=== PATIENT | female | born 1960 | race Caucasian/White ===

== ENCOUNTER 2016-07-29 11:37 | Outpatient (CLI) | payer BC ==
[2016-01-13 21:03] VITALS: BP 107/74
[2016-07-29 12:02] LABS: BASOPHILS % 0.2 (0.0-1.5); EOSINOPHILS % 2.7 % (0.0-6.8); LYMPHOCYTES # 0.5 # k/uL (0.6-4.0); MEAN CORPUSCULAR HEMOGLOBIN 30.7 pg (28.0-34.0); MONOCYTES # 0.4 # k/uL (0.0-0.9); MONOCYTES % 10.3 % (0.0-11.0); NEUTROPHILS # 2.7 # k/uL (1.4-7.7)
[2016-07-29 12:29] LABS: BILIRUBIN,DIRECT 0.1 mg/dL (0.0-0.4); eGFR (African) > 60; eGFR (Non-African) > 60
== END 2016-07-29 11:40 ==
LOC: LAB 11:37
PROVIDERS: ATTEND Internal Medicine Hematology & Oncology
DX: C34.90 Malignant neoplasm of unspecified part of unspecified bronchus or lung (principal)
CPT/HCPCS: 36415; 80053; 82248; 85025

== ENCOUNTER 2016-08-05 11:41 | Outpatient (CLI) | payer BC ==
[2016-01-13 21:03] VITALS: BP 107/74
[2016-08-05 11:57] LABS: BASOPHILS % 0.2 (0.0-1.5); EOSINOPHILS % 3.6 % (0.0-6.8); LYMPHOCYTES # 0.5 # k/uL (0.6-4.0); MEAN CORPUSCULAR HEMOGLOBIN 30.5 pg (28.0-34.0); MONOCYTES # 0.3 # k/uL (0.0-0.9); MONOCYTES % 8.7 % (0.0-11.0); NEUTROPHILS # 2.9 # k/uL (1.4-7.7)
[2016-08-05 12:44] LABS: BILIRUBIN,DIRECT 0.1 mg/dL (0.0-0.4); eGFR (African) > 60; eGFR (Non-African) > 60
== END 2016-08-05 11:42 ==
LOC: LAB 11:41
PROVIDERS: ATTEND Internal Medicine Hematology & Oncology
DX: C34.90 Malignant neoplasm of unspecified part of unspecified bronchus or lung (principal)
CPT/HCPCS: 36415; 80053; 82248; 85025

== ENCOUNTER 2016-08-26 12:50 | Outpatient (CLI) | payer BC ==
[2016-01-13 21:03] VITALS: BP 107/74
[2016-08-26 13:06] LABS: BASOPHILS % 0.1 (0.0-1.5); EOSINOPHILS % 6.9 % (0.0-6.8); LYMPHOCYTES # 0.5 # k/uL (0.6-4.0); MEAN CORPUSCULAR HEMOGLOBIN 31.8 pg (28.0-34.0); MONOCYTES # 0.3 # k/uL (0.0-0.9); MONOCYTES % 8.6 % (0.0-11.0); NEUTROPHILS # 2.1 # k/uL (1.4-7.7)
[2016-08-26 13:38] LABS: BILIRUBIN,DIRECT 0.1 mg/dL (0.0-0.4); eGFR (African) > 60; eGFR (Non-African) > 60
== END 2016-08-26 12:52 ==
LOC: LAB 12:50
PROVIDERS: ATTEND Internal Medicine Hematology & Oncology
DX: C34.90 Malignant neoplasm of unspecified part of unspecified bronchus or lung (principal)
CPT/HCPCS: 36415; 80053; 82248; 85025

== ENCOUNTER 2016-09-02 11:34 | Outpatient (CLI) | payer BC ==
[2016-01-13 21:03] VITALS: BP 107/74
[2016-09-02 12:00] LABS: BASOPHILS % 0.3 (0.0-1.5); EOSINOPHILS % 5.3 % (0.0-6.8); LYMPHOCYTES # 0.5 # k/uL (0.6-4.0); MEAN CORPUSCULAR HEMOGLOBIN 31.7 pg (28.0-34.0); MONOCYTES # 0.4 # k/uL (0.0-0.9); MONOCYTES % 12.1 % (0.0-11.0); NEUTROPHILS # 2.1 # k/uL (1.4-7.7)
== END 2016-09-02 11:35 ==
LOC: LAB 11:34
PROVIDERS: ATTEND Internal Medicine Hematology & Oncology
DX: L50.9 Urticaria, unspecified (principal)
CPT/HCPCS: 36415; 80053; 82248; 85025

== ENCOUNTER 2016-09-23 09:12 | Outpatient (CLI) | payer BC ==
[2016-01-13 21:03] VITALS: BP 107/74
[2016-09-23 09:34] LABS: BASOPHILS % 0.6 (0.0-1.5); LYMPHOCYTES # 0.4 # k/uL (0.6-4.0); MEAN CORPUSCULAR HEMOGLOBIN 30.8 pg (28.0-34.0); MONOCYTES # 0.3 # k/uL (0.0-0.9); MONOCYTES % 10.5 % (0.0-11.0)
[2016-09-23 10:01] LABS: BILIRUBIN,DIRECT 0.1 mg/dL (0.0-0.4); eGFR (African) > 60; eGFR (Non-African) > 60
== END 2016-09-23 09:30 ==
LOC: LAB 09:12
PROVIDERS: ATTEND Emergency Medicine
DX: C34.90 Malignant neoplasm of unspecified part of unspecified bronchus or lung (principal)
CPT/HCPCS: 36415; 80053; 82248; 85025

== ENCOUNTER 2016-09-30 11:31 | Outpatient (CLI) | payer BC ==
[2016-01-13 21:03] VITALS: BP 107/74
[2016-09-30 11:55] LABS: APPEARANCE,URINE Clear (CLEAR); BASOPHILS % 0.3 (0.0-1.5); COLOR,URINE Yellow (YELLOW); EOSINOPHILS % 2.6 % (0.0-6.8); LYMPHOCYTES # 0.4 # k/uL (0.6-4.0); MEAN CORPUSCULAR HEMOGLOBIN 31.1 pg (28.0-34.0); MONOCYTES # 0.3 # k/uL (0.0-0.9); MONOCYTES % 8.5 % (0.0-11.0); NEUTROPHILS # 2.3 # k/uL (1.4-7.7); OCCULT BLOOD,URINE Negative (NEGATIVE); UROBILINOGEN URINE 0.2 Eu (0.2-1.0)
[2016-09-30 12:52] LABS: BILIRUBIN,DIRECT 0.1 mg/dL (0.0-0.4); eGFR (African) > 60; eGFR (Non-African) > 60
== END 2016-09-30 11:32 ==
LOC: LAB 11:31
PROVIDERS: ATTEND Internal Medicine Hematology & Oncology
DX: C34.90 Malignant neoplasm of unspecified part of unspecified bronchus or lung (principal)
CPT/HCPCS: 36415; 80053; 81002; 82248; 85025; 87086

== ENCOUNTER 2016-10-21 08:18 | Outpatient (CLI) | payer BC ==
[2016-01-13 21:03] VITALS: BP 107/74
[2016-10-21 08:35] LABS: BASOPHILS % 0.3 (0.0-1.5); EOSINOPHILS % 3.2 % (0.0-6.8); MEAN CORPUSCULAR HEMOGLOBIN 31.5 pg (28.0-34.0); MEAN CORPUSCULAR VOLUME 95.7 fl (80.0-100.0); MONOCYTES % 7.5 % (0.0-11.0); NEUTROPHILS # 2.9 # k/uL (1.4-7.7)
[2016-10-21 09:29] LABS: BILIRUBIN,DIRECT 0.1 mg/dL (0.0-0.4); eGFR (African) > 60; eGFR (Non-African) > 60
== END 2016-10-21 08:19 ==
LOC: LAB 08:18
PROVIDERS: ATTEND Internal Medicine Hematology & Oncology
DX: L50.9 Urticaria, unspecified (principal)
CPT/HCPCS: 36415; 80053; 82248; 85025

== ENCOUNTER 2016-10-28 11:49 | Outpatient (CLI) | payer BC ==
[2016-01-13 21:03] VITALS: BP 107/74
[2016-10-28 12:03] LABS: BASOPHILS % 0.6 (0.0-1.5); EOSINOPHILS % 3.2 % (0.0-6.8); MEAN CORPUSCULAR VOLUME 94.7 fl (80.0-100.0); MONOCYTES % 9.9 % (0.0-11.0); NEUTROPHILS # 2.2 # k/uL (1.4-7.7)
[2016-10-28 12:41] LABS: eGFR (African) > 60; eGFR (Non-African) > 60
[2016-10-28 13:44] LABS: BILIRUBIN,DIRECT < 0.10 mg/dL (0.0-0.4)
== END 2016-10-28 11:50 ==
LOC: LAB 11:49
PROVIDERS: ATTEND Internal Medicine Hematology & Oncology
DX: L50.9 Urticaria, unspecified (principal)
CPT/HCPCS: 36415; 80053; 82248; 85025

== ENCOUNTER 2016-11-18 11:42 | Outpatient (CLI) | payer BC ==
[2016-01-13 21:03] VITALS: BP 107/74
[2016-11-18 12:10] LABS: BASOPHILS % 0.3 (0.0-1.5); EOSINOPHILS % 3.9 % (0.0-6.8); MEAN CORPUSCULAR HEMOGLOBIN 31.8 pg (28.0-34.0); MEAN CORPUSCULAR VOLUME 96.4 fl (80.0-100.0); MONOCYTES % 8.3 % (0.0-11.0); NEUTROPHILS # 2.5 # k/uL (1.4-7.7)
[2016-11-18 12:36] LABS: eGFR (African) > 60; eGFR (Non-African) > 60
== END 2016-11-18 11:43 ==
LOC: LAB 11:42
PROVIDERS: ATTEND Internal Medicine Hematology & Oncology
DX: C34.90 Malignant neoplasm of unspecified part of unspecified bronchus or lung (principal)
CPT/HCPCS: 36415; 80053; 82248; 85025

== ENCOUNTER 2016-11-26 11:46 | Outpatient (CLI) | payer BC ==
[2016-01-13 21:03] VITALS: BP 107/74
[2016-11-26 12:03] LABS: BASOPHILS % 0.3 (0.0-1.5); EOSINOPHILS % 2.4 % (0.0-6.8); MEAN CORPUSCULAR VOLUME 93.4 fl (80.0-100.0); MONOCYTES % 9.2 % (0.0-11.0); NEUTROPHILS # 2.4 # k/uL (1.4-7.7)
[2016-11-26 12:36] LABS: eGFR (African) > 60; eGFR (Non-African) > 60
== END 2016-11-26 11:47 ==
LOC: LAB 11:46
PROVIDERS: ATTEND Internal Medicine Hematology & Oncology
DX: C34.90 Malignant neoplasm of unspecified part of unspecified bronchus or lung (principal)
CPT/HCPCS: 36415; 80053; 82248; 85025

== ENCOUNTER 2016-12-16 07:03 | Outpatient (CLI) | payer BC ==
[2016-01-13 21:03] VITALS: BP 107/74
[2016-12-16 07:19] LABS: BASOPHILS % 0.4 (0.0-1.5); EOSINOPHILS % 3.5 % (0.0-6.8); MEAN CORPUSCULAR VOLUME 95.9 fl (80.0-100.0); MONOCYTES % 9.6 % (0.0-11.0); NEUTROPHILS # 1.5 # k/uL (1.4-7.7)
[2016-12-16 07:44] LABS: eGFR (African) > 60; eGFR (Non-African) > 60
== END 2016-12-16 07:04 ==
LOC: LAB 07:03
PROVIDERS: ATTEND Internal Medicine Hematology & Oncology
DX: C34.90 Malignant neoplasm of unspecified part of unspecified bronchus or lung (principal)
CPT/HCPCS: 80053; 82248; 85025

== ENCOUNTER 2016-12-23 11:57 | Outpatient (CLI) | payer BC ==
[2016-01-13 21:03] VITALS: BP 107/74
[2016-12-23 12:16] LABS: BASOPHILS % 0.4 (0.0-1.5); EOSINOPHILS % 2.3 % (0.0-6.8); MEAN CORPUSCULAR HEMOGLOBIN 31.1 pg (28.0-34.0); MEAN CORPUSCULAR VOLUME 95.1 fl (80.0-100.0); MONOCYTES % 10.2 % (0.0-11.0); NEUTROPHILS # 2.8 # k/uL (1.4-7.7)
[2016-12-23 12:46] LABS: eGFR (African) > 60; eGFR (Non-African) > 60
== END 2016-12-23 12:00 ==
LOC: LAB 11:57
PROVIDERS: ATTEND Internal Medicine Hematology & Oncology
DX: C34.90 Malignant neoplasm of unspecified part of unspecified bronchus or lung (principal); Z92.21 Personal history of antineoplastic chemotherapy
CPT/HCPCS: 36415; 80053; 82248; 85025

== ENCOUNTER 2016-12-30 14:13 | Outpatient (CLI) | payer BC ==
[2016-01-13 21:03] VITALS: BP 107/74
[2016-12-30 14:30] LABS: BASOPHILS % 0.7 (0.0-1.5); EOSINOPHILS % 2.3 % (0.0-6.8); MEAN CORPUSCULAR HEMOGLOBIN 31.8 pg (28.0-34.0); MEAN CORPUSCULAR VOLUME 94.6 fl (80.0-100.0); NEUTROPHILS # 2.8 # k/uL (1.4-7.7)
[2016-12-30 14:58] LABS: eGFR (African) > 60; eGFR (Non-African) > 60
== END 2016-12-30 14:14 ==
LOC: LAB 14:13
PROVIDERS: ATTEND Internal Medicine Hematology & Oncology
DX: C34.90 Malignant neoplasm of unspecified part of unspecified bronchus or lung (principal)
CPT/HCPCS: 36415; 80053; 82248; 85025

== ENCOUNTER 2017-01-21 10:56 | Outpatient (CLI) | payer BC ==
[2016-01-13 21:03] VITALS: BP 107/74
[2017-01-21 11:23] LABS: BASOPHILS % 0.5 (0.0-1.5); EOSINOPHILS % 2.4 % (0.0-6.8); MEAN CORPUSCULAR HEMOGLOBIN 32.3 pg (28.0-34.0); MEAN CORPUSCULAR VOLUME 95.2 fl (80.0-100.0); MONOCYTES % 9.9 % (0.0-11.0); NEUTROPHILS # 2.6 # k/uL (1.4-7.7)
[2017-01-21 21:51] LABS: TOTAL PROTEIN 6.9 g/dL (6.0-8.5)
== END 2017-01-21 10:57 ==
LOC: LAB 10:56
PROVIDERS: ATTEND Nurse Practitioner
DX: I62.9 Nontraumatic intracranial hemorrhage, unspecified (principal); C34.90 Malignant neoplasm of unspecified part of unspecified bronchus or lung
CPT/HCPCS: 36415; 80053; 82248; 85025

== ENCOUNTER 2017-01-28 12:00 | Outpatient (CLI) | payer BC ==
[2016-01-13 21:03] VITALS: BP 107/74
[2017-01-28 12:18] LABS: BASOPHILS % 0.7 (0.0-1.5); EOSINOPHILS % 3.3 % (0.0-6.8); MEAN CORPUSCULAR HEMOGLOBIN 31.9 pg (28.0-34.0); MEAN CORPUSCULAR VOLUME 95.1 fl (80.0-100.0); MONOCYTES % 11.4 % (0.0-11.0); NEUTROPHILS # 2.4 # k/uL (1.4-7.7)
[2017-01-28 12:52] LABS: eGFR (African) > 60; eGFR (Non-African) > 60
== END 2017-01-28 12:02 ==
LOC: LAB 12:00
PROVIDERS: ATTEND Nurse Practitioner
DX: I62.9 Nontraumatic intracranial hemorrhage, unspecified (principal); C34.90 Malignant neoplasm of unspecified part of unspecified bronchus or lung
CPT/HCPCS: 36415; 80053; 82248; 85025

== ENCOUNTER 2017-02-17 12:05 | Outpatient (CLI) | payer BC ==
[2016-01-13 21:03] VITALS: BP 107/74
[2017-02-17 12:15] LABS: BASOPHILS % 0.5 (0.0-1.5); EOSINOPHILS % 3.7 % (0.0-6.8); MEAN CORPUSCULAR HEMOGLOBIN 31.9 pg (28.0-34.0); MEAN CORPUSCULAR VOLUME 97.6 fl (80.0-100.0); MONOCYTES % 12.7 % (0.0-11.0); NEUTROPHILS # 2.2 # k/uL (1.4-7.7)
[2017-02-17 13:12] LABS: eGFR (African) > 60; eGFR (Non-African) > 60
== END 2017-02-17 12:06 ==
LOC: LAB 12:05
PROVIDERS: ATTEND Nurse Practitioner
DX: C34.90 Malignant neoplasm of unspecified part of unspecified bronchus or lung (principal)
CPT/HCPCS: 36415; 80053; 82248; 85025

== ENCOUNTER 2017-03-03 11:32 | Outpatient (CLI) | payer BC ==
[2016-01-13 21:03] VITALS: BP 107/74
[2017-03-03 11:47] LABS: BASOPHILS % 1.1 (0.0-1.5); MEAN CORPUSCULAR HEMOGLOBIN 32.5 pg (28.0-34.0); MEAN CORPUSCULAR VOLUME 95.2 fl (80.0-100.0); MONOCYTES % 12.3 % (0.0-11.0); NEUTROPHILS # 2.5 # k/uL (1.4-7.7)
[2017-03-03 12:16] LABS: eGFR (African) > 60; eGFR (Non-African) > 60
== END 2017-03-03 14:06 ==
LOC: LAB 11:32
PROVIDERS: ATTEND Nurse Practitioner
DX: I62.9 Nontraumatic intracranial hemorrhage, unspecified (principal); C34.90 Malignant neoplasm of unspecified part of unspecified bronchus or lung
CPT/HCPCS: 36415; 80053; 82248; 85025

== ENCOUNTER 2017-03-24 14:28 | Outpatient (CLI) | payer BC ==
[2016-01-13 21:03] VITALS: BP 107/74
[2017-03-24 14:55] LABS: BASOPHILS % 0.9 (0.0-1.5); EOSINOPHILS % 3.3 % (0.0-6.8); MEAN CORPUSCULAR HEMOGLOBIN 32.2 pg (28.0-34.0); MEAN CORPUSCULAR VOLUME 91.6 fl (80.0-100.0); MONOCYTES % 10.4 % (0.0-11.0); NEUTROPHILS # 2.6 # k/uL (1.4-7.7)
[2017-03-24 15:23] LABS: eGFR (African) > 60; eGFR (Non-African) > 60
== END 2017-03-24 14:30 ==
LOC: LAB 14:28
PROVIDERS: ATTEND Nurse Practitioner
DX: I62.9 Nontraumatic intracranial hemorrhage, unspecified (principal); C34.90 Malignant neoplasm of unspecified part of unspecified bronchus or lung
CPT/HCPCS: 36415; 80053; 82248; 85025

== ENCOUNTER 2017-04-01 12:11 | Outpatient (CLI) | payer BC ==
[2016-01-13 21:03] VITALS: BP 107/74
[2017-04-01 12:23] LABS: BASOPHILS % 1.1 (0.0-1.5); MEAN CORPUSCULAR HEMOGLOBIN 31.3 pg (28.0-34.0); MEAN CORPUSCULAR VOLUME 90.9 fl (80.0-100.0); MONOCYTES % 12.5 % (0.0-11.0); NEUTROPHILS # 1.6 # k/uL (1.4-7.7)
[2017-04-01 12:59] LABS: eGFR (African) > 60; eGFR (Non-African) > 60
== END 2017-04-01 12:12 ==
LOC: LAB 12:11
PROVIDERS: ATTEND Nurse Practitioner
DX: I62.9 Nontraumatic intracranial hemorrhage, unspecified (principal); C34.90 Malignant neoplasm of unspecified part of unspecified bronchus or lung
CPT/HCPCS: 36415; 80053; 82248; 85025

== ENCOUNTER 2018-04-01 10:56 | Outpatient (CLI) | payer MEDICARE, BC ==
[2016-01-13 21:03] VITALS: BP 107/74
== END 2018-04-01 10:57 ==
LOC: LABRHC 10:56
PROVIDERS: ATTEND Physician Assistant
DX: R30.0 Dysuria (principal)
CPT/HCPCS: 87086